=== PATIENT | female | born 1955 | race American Indian/Alaskan Native ===

== ENCOUNTER 2016-09-20 14:56 | Outpatient (CLI) | payer BC, OTHER | END 2016-09-20 14:57 | disposition home or self-care (01) | LOC: LABHHL 14:56 | PROVIDERS: ATTEND Surgery | DX: R92.0 Mammographic microcalcification found on diagnostic imaging of breast (principal) | CPT/HCPCS: 88305; 88361 ==

== ENCOUNTER 2016-10-03 10:09 | Outpatient (CLI) | payer BC ==
--- NOTE | 2016-10-05 15:06 | Magnetic Resonance Report ---
BILATERAL BREAST MRI WITHOUT AND WITH CONTRAST: 10/03/16 10:09:00 CLINICAL: Newly diagnosed right breast cancer. 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 In addition, high-grade DCIS. COMPARISON:05/03/16 and 05/11/16 mammograms. TECHNIQUE: Axial 1.0-mm T1 without, axial high resolution 2.0-mm T2 and axial 1.0-mm dynamic Vibrant high-resolution postcontrast T1 fat saturation sequences on a 1.5 Shana magnet. The examination was performed with an 8 channel dedicated [place] breast coil. Post processing with CAD and subtraction was performed on an Multichannel workstation. 18.0 cc of Multihance was injected without incident for the contrast portion of the exam. Consent was obtained prior to the administration of the contrast. FINDINGS: Right: Mild background parenchymal enhancement. Segmental ductal non-Mass enhancement is identified at the margin of the retroareolar stereotactic biopsy cavity and measures approximately 2.7 x 1.7 x 2.7 cm. This non-Mass enhancement correlates with the pattern of malignant calcifications on the mammogram but the calcifications are more extensive than the non-Mass enhancement. The calcifications on the mammogram involve an area measuring 5.1 x 4.4 x 2.9 cm and extend to the nipple. Suspicious focal non-Mass enhancement in the upper inner quadrant 7.7 cm from the nipple measures 4.6 x 3.6 x 2.8 mm. It demonstrates heterogeneous enhancement with mixed kinetics, 128% peak enhancement and 14% type III washout. A smooth oval mass of the upper outer quadrant 9.8 cm from the nipple measures 2.6 x 1.8 x 1.9 cm and demonstrates minimal enhancement. The morphology is consistent with a benign fibroadenoma and correlates with the largest asymmetry in the upper-outer breast on the mammogram. No other mass or suspicious enhancement of the right breast. No suspicious right axillary or right internal mammary lymph nodes. Left: Mild background parenchymal enhancement. Ductal non-Mass enhancement in the lower-outer quadrant 2.8 cm from the nipple measures 4.6 x 3.0 x 2.1 mm. It demonstrates heterogeneous enhancement with mixed kinetics, 177% peak enhancement and 15% type III washout. An oval mass in the upper outer quadrant 8.2 cm from nipple measures 7.8 x 4.2 x 3.5 mm. It demonstrates heterogeneous enhancement with mixed kinetics, 125% peak enhancement, 92% type I persistent and no type III washout. A second oval mass with similar enhancement characteristics in the lower outer quadrant 8.2 cm from the nipple measures 6.8 x 6.0 x 4.6 mm. No suspicious left axillary or left internal mammary lymph nodes. IMPRESSION: 1. Known right breast cancer with a 2.7 x 1.7 x 2.7 cm lesion by MRI and a 5.1 x 4.4 x 2.9 cm lesion based on calcifications on the mammogram. One additional suspicious 4.6-mm focus of non-Mass enhancement in the right breast. 2. Tiny suspicious ductal non-Mass enhancement in the left breast. Although biopsy may be challenging, recommend MRI guided biopsy of this lesion. 3. Two probably benign subcentimeter left breast masses. 4. No suspicious lymph nodes. RIGHT BI-RADS 6 -- Known Cancer LEFT BI-RADS 4 -- Suspicious
== END 2016-10-03 10:10 | disposition home or self-care (01) ==
LOC: SPVIMAG 10:09
PROVIDERS: ATTEND Surgery
DX: C50.411 Malignant neoplasm of upper-outer quadrant of right female breast (principal); R92.1 Mammographic calcification found on diagnostic imaging of breast
CPT/HCPCS: 0159T; A9577; C8908; 77059

== ENCOUNTER 2016-10-05 15:07 | Outpatient (CLI) | payer BC, OTHER | END 2016-10-05 15:08 | disposition home or self-care (01) | LOC: LABHHL 15:07 | PROVIDERS: ATTEND Surgery | DX: N63 Unspecified lump in breast (principal) | CPT/HCPCS: 88305 ==